=== PATIENT | female | born 1950 | race Caucasian/White ===

== ENCOUNTER 2016-03-25 10:00 | Outpatient (RCR) ==
[2013-08-13 08:14] VITALS: BMI 28.3
--- NOTE | 2016-03-05 10:01 | RS.OPPTEV2 ---
Date of Note: 03/05/16 Visit #: 1 Date of Evaluation: 03/05/16 Payer Source: MEDICARE Date of Onset/Injury/Change in Status: 02/25/16 Surgery Performed?: No Treatment Diagnosis: Ataxia History of Condition/Mechanism of Injury:: Patient states she was dx with cerebellar degeneration in 2001. It has progressively gotten worse and now she is having difficulty with BLE pain and balance and coordination. She denies falling routinely. She has some dizziness from nystagmus and has double vision at times when she look off to the side. / childxren in her family have this disorder. She attends water therapy 2X/wk. She is having decreased endurance and vocal and vision changes. She sees Dr. Dubon for neurology. She also reports she is getting choked at times and having some trouble swallowing but it is inconsistent. Prior Level of Function.....Patient was independent with: ADL's, Self Care, Work /Vocation, Caregiving, Ambulation/Mobility, Community Integration/Access Functional Limitations: Reaching, Pushing, Pulling, Lifting, Carrying, Bending, Squatting, Ambulation, Community Access/Integration Current Subjective/complaints:: My legs seems to hurt more at night from my hips down. It is an ache and I can not get comfortable. It is not every night. I use Aspircream and it helps. Treatment Side (optional): N/A Medical History Medical History Comments:: GERD, osteoporosis Surgical History: Hysterectomy Surgical History Comments:: Tubal ligation and cataract surgery and hernia repair. Smoking Status: Never smoker Patient's Goals: Gain strength and walk better. Pain Assessment - Pain Description Pain Location: BLEs Pain Description: Dull, Aching Current Pain Intensity: 0/10 Other Comments regarding Pain:: Pain is intermittent Functional Outcome Measure Tinetti: 15 (46% disability) Dynamic Gait: 12 (50% disability) - G Codes & Severity Modifier G Codes & Modifier: Current: Mobility, Walking & Moving Around - CK. Goal: CJ Source of G Code score: Tinetti & Dynamic Gait Index Gait - Gait Pattern General Gait Pattern Observation: Weaving Gait, Ataxic Gait General Range of Motion: WNLs in all extremities. Muscle Strength: BLE MMT WFLs but fatigue rapidly. Palpation Comments:: No tenderness to palpatiion of the LEs. Sensation - Sensation Sensation Description: Tingling (Bilateral feet) Balance - Sitting Balance Static Sitting Balance: Normal Dynamic Sitting Balance: Good - Standing Balance Static Standing Balance: Good Dynamic Standing Balance: Fair - Comments Balance Assessment Comments: Rollator Walker used for all balance testing. Coordination - Tests Bilateral Finger to Nose: Mild Deviation Heel to [place]: Mild Deviation Toe Tapping: Normal/Intact Interventions - Exercise/Activities/Manual Therapy Exercises/Activities: NA Manual Therapy: NA - Charges Total Direct Minutes: 45 Total Treatment Time: 45 Procedures billed for this date of service:: Moderate Complexity PT Eval Assessment Assessment: Patient has cerebellar degeneration with c/o decreased coordination , decreased standing balance, rapid fatigue and multiple gait deficits. She does have intermittent BLE pain which usually occurs at night. Patient's visual disruption and associated dizziness will cause increased duration to see progress. Patient Education: Education of diagnosis, Education of Plan of Care Rehab Potential: Good Short Term Goals Goal #1: Patient is independent in initial HEP Goal to be met by: 03/22/16 Goal #2: Patient has good safety awareness with min challenges to her balance Goal to be met by: 03/22/16 Goal #3: Tinetti Balance Assessment score 20/28 Goal to be met by: 03/22/16 Snf Goals Goal #1: Patient is able to verbalize increased confidence with daily tasks. Goal to be met by: 04/05/16 Goal #2: DGI score 16/24 to decrease fall risk. 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
--- NOTE | 2016-03-06 12:12 | RS.OPPTDN ---
Subjective Date of Note: 03/06/16 Visit #: 2 Date of Evaluation: 03/05/16 Payer Source: MEDICARE Treatment Diagnosis: Ataxia Current Subjective/complaints:: Patient reports doing well with balance activities today. Reports she has the most trouble with turns when walking. Pain Assessment - Pain Description Pain Location: BLEs Pain Description: Dull, Aching Current Pain Intensity: 0/10 Other Comments regarding Pain:: Tingling in feet. Interventions - Exercise/Activities/Manual Therapy Exercises/Activities: NEURO 50mins with therapeutic breaks. Begins on Balance [place] for random control, unilateral standing, and weight shifting activities. In stading at hand rail for balance activities of marching, heel- toe walking, backward walking, toe-walking, side stepping and marching. Mini- squats and toe-ups. Standing while performing ball on the wall and active reaching above shoulder height. Worked on step-ups and step-downs on short stepper board and lateral step-ups and down, all multiple reps. Total minutes of Exercise: NEURO 50mins direct Manual Therapy: NA HOME EXERCISE PROGRAM: Standing at handrail or kitchen counter for toe-ups, mini -squats, and side-stepping - Charges Total Direct Minutes: 50mins Total Treatment Time: 50mins Procedures billed for this date of service:: NEUROx3 Assessment: Patient able to participate in all balance activities. She is motivated to work on HEP and improve her balance. Patient Education: Home Exercise Program, Home Safety, Activity Modification Patient demonstrates compliance with HEP?: Yes Short Term Goals Goal #1: Patient is independent in initial HEP Goal to be met by: 03/22/16 Progress towards Goal:: Progressing Goal #2: Patient has good safety awareness with min challenges to her balance Goal to be met by: 03/22/16 Progress towards Goal:: Progressing Goal #3: Tinetti Balance Assessment score 20/28 Goal to be met by: 03/22/16 Long-Term Goals Goal #1: Patient is able to verbalize increased confidence with daily tasks. Goal to be met by: 04/05/16 Goal #2: DGI score 16/24 to decrease fall risk. Goal to be met by: 04/05/16 Goal #3: Patient is independent with DC HEP to maintain status Goal to be met by: 04/05/16 Plan PLAN OF CARE EXPIRES ON:: 04/05/16 ORDER # VISITS AND/OR THROUGH DATE: 04/05/2016 PLAN: Continue Plan of Care
--- NOTE | 2016-03-08 12:12 | RS.OPPTDN ---
Subjective Date of Note: 03/08/16 Visit #: 3 Date of Evaluation: 03/05/16 Payer Source: MEDICARE Treatment Diagnosis: Ataxia Current Subjective/complaints:: Patient reports some soreness in the bilateral hamstrings after last session of balance activity. Pain Assessment - Pain Description Pain Location: BLEs Pain Description: Dull, Aching Current Pain Intensity: 0/10 Interventions - Exercise/Activities/Manual Therapy Exercises/Activities: NEURO 50mins with therapeutic breaks. Begins on Balance [place] for random control, unilateral standing, and weight shifting activities. In stading at hand rail for balance activities of marching, toe- walking, side stepping and marching. Mini-squats and toe-ups. Began alternate hip abduction. Standing while performing ball on the wall and active reaching above shoulder height. Worked on step-ups and step-downs on short stepper board and lateral step-ups and down, all multiple reps. In standing, red theraband for postural strengthening and balance work, 3s/10reps. Total minutes of Exercise: 50mins Manual Therapy: NA HOME EXERCISE PROGRAM: Standing at handrail or kitchen counter for toe-ups, mini -squats, and side-stepping - Charges Total Direct Minutes: 50mins Total Treatment Time: 50mins Procedures billed for this date of service:: NEUROx3 Assessment: Patient motivated to progress balance activities. Patient Education: Education of diagnosis, Body/Joint mechanics, Home Exercise Program, Activity Modification Patient demonstrates compliance with HEP?: Yes Short Term Goals Goal #1: Patient is independent in initial HEP Goal to be met by: 03/22/16 Progress towards Goal:: Progressing Goal #2: Patient has good safety awareness with min challenges to her balance Goal to be met by: 03/22/16 Progress towards Goal:: Progressing Goal #3: Tinetti Balance Assessment score 20/28 Goal to be met by: 03/22/16 Online Advertising Director Goals Goal #1: Patient is able to verbalize increased confidence with daily tasks. Goal to be met by: 04/05/16 Goal #2: DGI score 16/24 to decrease fall risk. Goal to be met by: 04/05/16 Goal #3: Patient is independent with DC HEP to maintain status Goal to be met by: 04/05/16 Plan PLAN OF CARE EXPIRES ON:: 04/05/16 ORDER # VISITS AND/OR THROUGH DATE: 04/05/2016 PLAN: Continue Plan of Care
--- NOTE | 2016-03-13 13:32 | RS.OPPTDN ---
Subjective Date of Note: 03/13/16 Visit #: 4 Date of Evaluation: 03/05/16 Payer Source: MEDICARE Treatment Diagnosis: Ataxia Current Subjective/complaints:: Patient reports she had some muscle soreness after last session. States she is working on HEP. Pain Assessment - Pain Description Pain Location: BLEs Pain Description: Dull, Aching Current Pain Intensity: 0/10 Interventions - Exercise/Activities/Manual Therapy Exercises/Activities: NEURO 35mins with therapeutic breaks. Begins on Balance [place] for random control, unilateral standing, and weight shifting activities. In stading at hand rail for balance activities of marching, toe- walking, side stepping and marching. Worked on step-ups and step-downs on short stepper board and lateral step-ups and down, all multiple reps. EXERCISE 15mins Mini-squats and toe-ups. Alternate hip flexion with 2# each side, 2s/10reps. SLR 2s/10reps. Red theraband for hip abd in hook-lying and ankld df. Total minutes of Exercise: 35mins NEURO, 15mins EX Manual Therapy: NA HOME EXERCISE PROGRAM: Standing at handrail or kitchen counter for toe-ups, mini -squats, and side-stepping - Charges Total Direct Minutes: 50mins Total Treatment Time: 50mins Procedures billed for this date of service:: NEUROx2, EX Assessment: Patient progressing well with exercise. Patient Education: Home Exercise Program Patient demonstrates compliance with HEP?: Yes Short Term Goals Goal #1: Patient is independent in initial HEP Goal to be met by: 03/22/16 Progress towards Goal:: Progressing Goal #2: Patient has good safety awareness with min challenges to her balance Goal to be met by: 03/22/16 Progress towards Goal:: Progressing Goal #3: Tinetti Balance Assessment score 20/28 Goal to be met by: 03/22/16 Usp Goals Goal #1: Patient is able to verbalize increased confidence with daily tasks. Goal to be met by: 04/05/16 Goal #2: DGI score 16/24 to decrease fall risk. Goal to be met by: 04/05/16 Goal #3: Patient is independent with DC HEP to maintain status Goal to be met by: 04/05/16 Plan PLAN OF CARE EXPIRES ON:: 04/05/16 ORDER # VISITS AND/OR THROUGH DATE: 04/05/2016 PLAN: Continue Plan of Care
--- NOTE | 2016-03-15 13:19 | RS.OPPTDN ---
Subjective Date of Note: 03/15/16 Visit #: 5 Date of Evaluation: 03/05/16 Payer Source: MEDICARE Treatment Diagnosis: Ataxia Current Subjective/complaints:: Reports right knee seems stronger and less painful. States she is working on HEP. Pain Assessment - Pain Description Pain Location: BLEs Pain Description: Dull, Aching Current Pain Intensity: 0/10 Interventions - Exercise/Activities/Manual Therapy Exercises/Activities: NEURO 35mins with therapeutic breaks. Balance [place] for random control, unilateral standing, and weight shifting activities. In stading at hand rail for balance activities of marching, toe-walking, side stepping and backward walking. Worked on step-ups and step-downs on short stepper board and lateral step-ups and down, all multiple reps. Began walking on treadmill slow pace to work on equal even steps, 0.5mph 2s/1min. EXERCISE 15mins Mini-squats and toe-ups. Large ball on wall overhead for balance. Leg press 15#, 3s/15reps and toe-offs 15# 2s/10reps. Total minutes of Exercise: NEURO 35mins, EX 15mins Manual Therapy: NA HOME EXERCISE PROGRAM: Standing at handrail or kitchen counter for toe-ups, mini -squats, and side-stepping - Charges Total Direct Minutes: 50mins Total Treatment Time: 50mins Procedures billed for this date of service:: NEUROx2, EX Assessment: Patient progressing with balance and strengthening exercise. Patient Education: Body/Joint mechanics, Home Exercise Program, Activity Modification Patient demonstrates compliance with HEP?: Yes Short Term Goals Goal #1: Patient is independent in initial HEP Goal to be met by: 03/22/16 Progress towards Goal:: Progressing Goal #2: Patient has good safety awareness with min challenges to her balance Goal to be met by: 03/22/16 Progress towards Goal:: Progressing Goal #3: Tinetti Balance Assessment score 20/28 Goal to be met by: 03/22/16 Snf Goals Goal #1: Patient is able to verbalize increased confidence with daily tasks. Goal to be met by: 04/05/16 Goal #2: DGI score 16/24 to decrease fall risk. Goal to be met by: 04/05/16 Goal #3: Patient is independent with DC HEP to maintain status Goal to be met by: 04/05/16 Plan PLAN OF CARE EXPIRES ON:: 04/05/16 ORDER # VISITS AND/OR THROUGH DATE: 04/05/2016 PLAN: Continue Plan of Care
--- NOTE | 2016-03-18 16:19 | RS.OPPTDN ---
Subjective Date of Note: 03/18/16 Visit #: 6 Date of Evaluation: 03/05/16 Payer Source: MEDICARE Treatment Diagnosis: Ataxia Current Subjective/complaints:: Patient reports increased fatigue this afternoon. Pain Assessment - Pain Description Pain Location: BLEs Pain Description: Dull, Aching Current Pain Intensity: 0/10 Interventions - Exercise/Activities/Manual Therapy Exercises/Activities: NEURO 35mins with therapeutic breaks. Balance [place] for random control, unilateral standing, weight shifting activities, and Catch Game. In standing at hand rail for balance activities of marching, toe-walking, side stepping and backward walking. Worked on step-ups and step-downs on short stepper board and lateral step-ups and down, all multiple reps. EXERCISE 15mins Mini-squats and toe-ups. In sitting, 3# each LE for SAQ and hip flexion , 2s/15reps each. Leg press increased to 30#, 3s/15reps and toe-offs 30# 2s/ 10reps. Total minutes of Exercise: 35mins NEURO, 15mins EX Manual Therapy: NA HOME EXERCISE PROGRAM: Standing at handrail or kitchen counter for toe-ups, mini -squats, and side-stepping - Charges Total Direct Minutes: 50mins Total Treatment Time: 50mins Procedures billed for this date of service:: NEUROx2, EX Assessment: Patient continues to work on balance and strengthening to increase safety with daily activities. Patient Education: Body/Joint mechanics, Home Exercise Program Patient demonstrates compliance with HEP?: Yes Short Term Goals Goal #1: Patient is independent in initial HEP Goal to be met by: 03/22/16 (100%) Progress towards Goal:: Met Goal #2: Patient has good safety awareness with min challenges to her balance Goal to be met by: 03/22/16 Progress towards Goal:: Progressing Goal #3: Tinetti Balance Assessment score 20/28 Goal to be met by: 03/22/16 Mcc Goals Goal #1: Patient is able to verbalize increased confidence with daily tasks. Goal to be met by: 04/05/16 Progress towards goal: Progressing Goal #2: DGI score 16/24 to decrease fall risk. Goal to be met by: 04/05/16 Goal #3: Patient is independent with DC HEP to maintain status Goal to be met by: 02/10/17 Plan PLAN OF CARE EXPIRES ON:: 04/05/16 ORDER # VISITS AND/OR THROUGH DATE: 04/05/2016 PLAN: Continue Plan of Care
--- NOTE | 2016-03-20 16:26 | RS.OPPTDN ---
Subjective Date of Note: 03/20/16 Visit #: 7 Date of Evaluation: 03/05/16 Payer Source: MEDICARE Treatment Diagnosis: Ataxia Current Subjective/complaints:: Patient reports she is getting stronger. States she feels she is doing better going up steps. Pain Assessment - Pain Description Pain Location: BLEs Pain Description: Dull, Aching Current Pain Intensity: 0/10 Interventions - Exercise/Activities/Manual Therapy Exercises/Activities: NEURO 35mins with therapeutic breaks. Balance [place] for random control, unilateral standing, weight shifting activities, and Catch Game. In standing at hand rail for balance activities of marching, toe-walking, side stepping and backward walking. Worked on step-ups and step-downs on short stepper board and lateral step-ups and down, all multiple reps. EXERCISE 15mins Sitting, SAQ 3# and hip flexion #3, 2s/15reps each. In supine, trunk rotation with 6# ball. Red theraband for ankle df andham curls, 2s/10reps each. Leg press increased to 45#, 3s/15reps. Assisted patient onto stationary bike, slow to mod pace 3mins. Total minutes of Exercise: NEURO 35mins, EX 15mins Manual Therapy: NA HOME EXERCISE PROGRAM: Standing at handrail or kitchen counter for toe-ups, mini -squats, and side-stepping - Charges Total Direct Minutes: 50mins Total Treatment Time: 50mins Procedures billed for this date of service:: NEUROx2, EX Assessment: Patient progressing with balance and strengthening activities. Patient reporting improvement in strength and with functional mobility. Patient Education: Body/Joint mechanics, Home Exercise Program, Home Safety Patient demonstrates compliance with HEP?: Yes Short Term Goals Goal #1: Patient is independent in initial HEP Goal to be met by: 03/22/16 (100%) Progress towards Goal:: Met Goal #2: Patient has good safety awareness with min challenges to her balance Goal to be met by: 03/22/16 Progress towards Goal:: Progressing Goal #3: Tinetti Balance Assessment score 20/28 Goal to be met by: 03/22/16 Architectural Sales Consultant Goals Goal #1: Patient is able to verbalize increased confidence with daily tasks. Goal to be met by: 04/05/16 Progress towards goal: Progressing Goal #2: DGI score 16/24 to decrease fall risk. Goal to be met by: 04/05/16 Goal #3: Patient is independent with DC HEP to maintain status Goal to be met by: 04/05/16 Plan PLAN OF CARE EXPIRES ON:: 04/05/16 ORDER # VISITS AND/OR THROUGH DATE: 04/05/2016 PLAN: Continue Plan of Care
--- NOTE | 2016-03-25 11:29 | RS.OPPTDN ---
Subjective Date of Note: 03/25/16 Visit #: 8 Date of Evaluation: 03/05/16 Payer Source: MEDICARE Treatment Diagnosis: Ataxia Current Subjective/complaints:: Patient reports she has increased strength. States she has improved ability to go up steps and to lift LE's in and out of car. Pain Assessment - Pain Description Pain Location: BLEs Pain Description: Dull, Aching Current Pain Intensity: 0/10 Interventions - Exercise/Activities/Manual Therapy Exercises/Activities: NEURO 35mins with therapeutic breaks. Balance [place] for random control, unilateral standing, weight shifting activities. In standing at hand rail for balance activities of marching, toe-walking, cross walking, side stepping and backward walking. Worked on step-ups and step-downs on short stepper board and lateral step-ups and down, all multiple reps. Unilateral standing on green thera-foam, alternating sides multiple reps. At handrail, mini-squats and toe-ups. EXERCISE 15mins Sitting, SAQ 3# and hip flexion #3, 2s/15reps each. Red theraband for ankle df 2s/10reps each. Leg press to 45#, 2s/20reps. Assisted patient onto stationary bike, slow to mod pace 3mins. Total minutes of Exercise: NEURO 35mins, EX 15mins Manual Therapy: NA HOME EXERCISE PROGRAM: Standing at handrail or kitchen counter for toe-ups, mini -squats, and side-stepping - Charges Total Direct Minutes: 50mins Total Treatment Time: 50mins Procedures billed for this date of service:: NEUROx2, EX Assessment: Patient progressing with exercise and reporting improvement in ability with daily activities. Patient Education: Home Exercise Program, Home Safety, Activity Modification Patient demonstrates compliance with HEP?: Yes Short Term Goals Goal #1: Patient is independent in initial HEP Goal to be met by: 03/22/16 (100%) Progress towards Goal:: Met Goal #2: Patient has good safety awareness with min challenges to her balance Goal to be met by: 03/22/16 Progress towards Goal:: Met Goal #3: Tinetti Balance Assessment score 20/28 Goal to be met by: 03/22/16 Vascular Neurologist Goals Goal #1: Patient is able to verbalize increased confidence with daily tasks. Goal to be met by: 04/05/16 (25%) Progress towards goal: Progressing Goal #2: DGI score 16/24 to decrease fall risk. Goal to be met by: 04/05/16 Goal #3: Patient is independent with DC HEP to maintain status Goal to be met by: 04/05/16 Plan PLAN OF CARE EXPIRES ON:: 04/05/16 ORDER # VISITS AND/OR THROUGH DATE: 04/05/2016 PLAN: Continue Plan of Care
== END 2016-03-26 ==
PROVIDERS: ATTEND Family Medicine
DX: G11.8 Other hereditary ataxias (principal)

== ENCOUNTER 2016-04-10 14:00 | Outpatient (RCR) ==
[2013-08-13 08:14] VITALS: BMI 28.3
--- NOTE | 2016-03-27 16:40 | RS.OPPTDN ---
Subjective Date of Note: 03/27/16 Visit #: 9 Date of Evaluation: 03/05/16 Payer Source: MEDICARE Treatment Diagnosis: Ataxia Current Subjective/complaints:: Manjit reports she is stronger. States she continues to see improvement with her ability to go up/down steps, get in/out of car, and with mobility in her home. Pain Assessment - Pain Description Pain Location: BLEs Current Pain Intensity: 0/10 Interventions - Exercise/Activities/Manual Therapy Exercises/Activities: NEURO 35mins with therapeutic breaks. Balance [place] for random control, unilateral standing, weight shifting, and Catch Game 2s/2mins. In standing at hand rail for balance activities of marching, toe-walking, cross walking, side stepping and backward walking. Worked on step-ups and step-downs on short stepper board and lateral step-ups and down, all multiple reps. Unilateral standing on green thera-foam, alternating sides multiple reps. EXERCISE 15mins Sitting, SAQ 3# and hip flexion #3, 2s/15reps each. At handrail , mini-squats and toe-ups. 3# to each ankle for hip abduction and marching, 10reps each. Red theraband for ankle df 2s/10reps each. Leg press to 45#, 2s/ 20reps. Assisted patient onto stationary bike, slow to mod pace 3mins. Total minutes of Exercise: NEURO 35mins, EX 15mins Manual Therapy: NA HOME EXERCISE PROGRAM: Standing at handrail or kitchen counter for toe-ups, mini -squats, and side-stepping - Charges Total Direct Minutes: 50mins Total Treatment Time: 50mins Procedures billed for this date of service:: NEUROx2, EX Assessment: Patient progressing with strengthening activities and reporting improvement with her ability to perform basic daily mobility. Patient Education: Home Exercise Program, Home Safety Patient demonstrates compliance with HEP?: Yes Short Term Goals Goal #1: Patient is independent in initial HEP Goal to be met by: 03/22/16 (100%) Progress towards Goal:: Met Goal #2: Patient has good safety awareness with min challenges to her balance Goal to be met by: 03/22/16 Progress towards Goal:: Met Goal #3: Tinetti Balance Assessment score 20/28 Goal to be met by: 03/22/16 Engineering Secretary Goals Goal #1: Patient is able to verbalize increased confidence with daily tasks. Goal to be met by: 04/05/16 (25%) Progress towards goal: Progressing Goal #2: DGI score 16/24 to decrease fall risk. Goal to be met by: 04/05/16 Goal #3: Patient is independent with DC HEP to maintain status Goal to be met by: 04/05/16 Plan PLAN OF CARE EXPIRES ON:: 04/05/16 ORDER # VISITS AND/OR THROUGH DATE: 04/05/2016 PLAN: Continue Plan of Care (Continue to progress strenthening and balance activity to increase patient safety and functional activity level.)
--- NOTE | 2016-04-03 16:30 | RS.OPPTDN ---
Subjective Date of Note: 04/03/16 Visit #: 10 Date of Evaluation: 03/05/16 Payer Source: MEDICARE Treatment Diagnosis: Ataxia Current Subjective/complaints:: Patient reports left knee pain has been elevated since increasing LE weights last session. Pain Assessment - Pain Description Pain Location: BLEs Current Pain Intensity: mild to mod left knee Interventions - Exercise/Activities/Manual Therapy Exercises/Activities: NEURO 35mins with therapeutic breaks. Balance Kyle for random control, unilateral standing, weight shifting, and Catch Game 2s/2mins. In standing at hand rail for balance activities of marching, toe-walking, cross walking, side stepping. Worked on step-ups and step-downs on short stepper board and lateral step-ups and down, all multiple reps. Unilateral standing on green thera-foam, alternating sides multiple reps. EXERCISE 13mins At handrail , mini-squats and toe-ups. Alt. hip abduction and hip flexion. Red theraband for ankle df 2s/10reps each. Leg press to 45#, 3s/20reps and df 2s/10reps. Assisted patient onto stationary bike, slow to mod pace 3mins. Total minutes of Exercise: NEURO 35mins, EX 13mins Manual Therapy: NA HOME EXERCISE PROGRAM: Standing at handrail or kitchen counter for toe-ups, mini -squats, and side-stepping - Charges Total Direct Minutes: 48mins Total Treatment Time: 50mins Procedures billed for this date of service:: NEUROx2, EX Assessment: Patient has progressed and seen improvement in her daily functional activities since beginning therapy. She reports noticable improvement in strength. Patient Education: Body/Joint mechanics, Home Exercise Program, Activity Modification Patient demonstrates compliance with HEP?: Yes Short Term Goals Goal #1: Patient is independent in initial HEP Goal to be met by: 03/22/16 (100%) Progress towards Goal:: Met Goal #2: Patient has good safety awareness with min challenges to her balance Goal to be met by: 03/22/16 Progress towards Goal:: Met Goal #3: Tinetti Balance Assessment score Goal to be met by: 03/22/16 Progress towards Goal:: Progressing (Increased to ) [place] Hat Blocker Goals Goal #1: Patient is able to verbalize increased confidence with daily tasks. Goal to be met by: 04/05/16 (75%) Progress towards goal: Progressing Goal #2: DGI score 16/24 to decrease fall risk. Goal to be met by: 04/05/16 Progress towards goal: Not Met Goal #3: Patient is independent with DC HEP to maintain status Goal to be met by: 04/05/16 Plan PLAN OF CARE EXPIRES ON:: 04/05/16 ORDER # VISITS AND/OR THROUGH DATE: 04/05/2016 PLAN: Continue Plan of Care (Continue and progress strengthening and balance activity and build HEP.)
--- NOTE | 2016-04-05 16:21 | RS.OPPTDN ---
Subjective Date of Note: 04/05/16 Visit #: 11 Date of Evaluation: 03/05/16 Payer Source: MEDICARE Treatment Diagnosis: Ataxia Current Subjective/complaints:: Patient reports she is much stronger. She is able to be more mobile at home. She reports she has not had any falls. Pain Assessment - Pain Description Pain Location: BLEs Current Pain Intensity: mild to mod left knee Interventions - Exercise/Activities/Manual Therapy Exercises/Activities: NEURO 35mins with therapeutic breaks. Balance Orchard Worker for random control, unilateral standing, weight shifting, and Catch Game 2s/2mins. In standing at hand rail for balance activities of marching, toe-walking, cross walking, side stepping. Worked on step-ups and step-downs on short stepper board and lateral step-ups and down, all multiple reps. Unilateral standing on green thera-foam, alternating sides multiple reps. EXERCISE 22mins Mat exercise of alt hip flexion 3#, SAQ 3#, SLR, hip abd, red theraband for hip abd and add in hook-lying. Bridging. Isometric hip flexion. Red theraband for ankle df 2s/10reps each. At handrail, mini-squats and toe-ups. Alt. hip abduction and hip flexion. Leg press to 45#, 3s/20reps and df 2s/10reps. Assisted patient onto stationary bike, slow to mod pace 3mins. Total minutes of Exercise: NEURO 35mins, EX 22mins Manual Therapy: NA HOME EXERCISE PROGRAM: Standing at handrail or kitchen counter for toe-ups, mini -squats, and side-stepping. Mat ex of SLR, SAQ, Hip abd, hook-lying LE lifts, isometric hip add, bridging. - Charges Total Direct Minutes: 57mins Total Treatment Time: 57mins Procedures billed for this date of service:: NEURO2, EX2 Assessment: Patient has progressed with strengthening and HEP. She has reported improvement with mobility in her home and community. She has met 3 of 6 treatment goals. Patient Education: Education of diagnosis, Home Exercise Program, Home Safety, Activity Modification Comments: Added to HEP and patient given copies of new ex. Patient demonstrates compliance with HEP?: Yes Short Term Goals Goal #1: Patient is independent in initial HEP Goal to be met by: 03/22/16 (100%) Progress towards Goal:: Met Goal #2: Patient has good safety awareness with min challenges to her balance Goal to be met by: 03/22/16 Progress towards Goal:: Met Goal #3: Tinetti Balance Assessment score Goal to be met by: 03/22/16 Progress towards Goal:: Progressing (Increased to ) Raw Products Director Goals Goal #1: Patient is able to verbalize increased confidence with daily tasks. Goal to be met by: 04/05/16 (100%) Progress towards goal: Met Goal #2: DGI score 1624 to decrease fall risk. Goal to be met by: 04/12/16 Progress towards goal: Progressing Goal #3: Patient is independent with DC HEP to maintain status Goal to be met by: 04/12/16 (90%) Progress towards goal: Progressing Plan PLAN OF CARE EXPIRES ON:: 04/12/16 ORDER # VISITS AND/OR THROUGH DATE: 04/12/2016 PLAN: Continue Plan of Care (Continue next week working toward LTG's to increase patients safety and functional activity level.)
--- NOTE | 2016-04-05 16:33 | RS.PTSUM ---
Progress Note/Summary Date of Note: 04/05/16 Date of Evaluation: 03/05/16 Number of Visits: 10 Reporting Period for this Progress Note: 03/05/16 through 04/03/16 Current Complaints/Gains: Patient reports she is much stronger. Can get in and out of car without lifting her LE's. Reports improvement with stairs. Objective Measurements/Presentation: Patient demonstrates independence with basic HEP. She demonstrates consistent foot clearance during swing phase. G Codes: Mobility current CJ. Mobility Goal CJ Source of G Code Score: Tinetti Assessment . No change in Dynamic Gait Index - Short Term Goals Goal #1: Patient is independent in initial HEP Goal to be met by: 03/22/16 (100%) Progress towards Goal:: Met Goal #2: Patient has good safety awareness with min challenges to her balance Goal to be met by: 03/22/16 Progress towards Goal:: Met Goal #3: Tinetti Balance Assessment score Goal to be met by: 03/22/16 Progress towards Goal:: Progressing (Increased to ) - Intermediate Goals Goal #1: Patient is able to verbalize increased confidence with daily tasks. Goal to be met by: 04/12/16 (100%) Progress towards goal: Met Goal #2: DGI score 1624 to decrease fall risk. Goal to be met by: 04/12/16 Progress towards goal: Not Met Goal #3: Patient is independent with DC HEP to maintain status Goal to be met by: 04/12/16 (100%) Progress towards goal: Met - Assessment Assessment of Improvement/Progress: Continue 2 more visits to advance HEP and education of safety with mobility. Summary: Patient has made progress towards goals., Patient demonstrates potential to gain increased function with therapy, Maximum potential has yet to be attained. - Plan Plan: Continue Plan of Care PLAN OF CARE EXPIRES ON:: 04/12/16 ORDER # VISITS AND/OR THROUGH DATE: 04/12/16
--- NOTE | 2016-04-10 16:53 | RS.OPPTDN ---
Subjective Date of Note: 04/10/16 Visit #: 12 Date of Evaluation: 03/05/16 Payer Source: MEDICARE Treatment Diagnosis: Ataxia Current Subjective/complaints:: Patient reports she understands HEP and will continue after discharge. States he balance has not improved, but her strength is much better and has helped her with her ability with ADL's. She reports no falls. Pain Assessment - Pain Description Pain Location: BLEs Current Pain Intensity: mild to mod left knee Interventions - Exercise/Activities/Manual Therapy Exercises/Activities: NEURO 35mins with therapeutic breaks. Balance Bridge Gang Worker for random control, unilateral standing, weight shifting, and Catch Game 2s/2mins. In standing at hand rail for balance activities of marching, toe-walking, cross walking, side stepping. Worked on step-ups and step-downs on short stepper board and lateral step-ups and down, all multiple reps. Unilateral standing on green thera-foam, alternating sides multiple reps. EXERCISE 24mins Mat exercise of alt hip flexion, SLR, hip abd. Bridging. Isometric hip flexion. Yellow theraband for ankle df 2s/10reps each. At handrail, mini-squats and toe- ups. Alt. hip abduction and hip flexion. Leg press to 45#, 3s/20reps and df 2s/ 10reps. Reviewed HEP and given additional copies and therabands. Total minutes of Exercise: NEURO 35mins, EX 24mins Manual Therapy: NA HOME EXERCISE PROGRAM: Standing at handrail or kitchen counter for toe-ups, mini -squats, and side-stepping. Mat ex of SLR, SAQ, Hip abd, hook-lying LE lifts, isometric hip add, bridging. - Charges Total Direct Minutes: 59mins Total Treatment Time: 59mins Procedures billed for this date of service:: NEURO2, EX2 Assessment: Patient progressed well and benefitted from treatment. She met 4 or 6 treatment goals. Patient Education: Home Exercise Program, Home Safety, Activity Modification, Education of Plan of Care Patient demonstrates compliance with HEP?: Yes Short Term Goals Goal #1: Patient is independent in initial HEP Goal to be met by: 03/22/16 (100%) Progress towards Goal:: Met Goal #2: Patient has good safety awareness with min challenges to her balance Goal to be met by: 03/22/16 Progress towards Goal:: Met Goal #3: Tinetti Balance Assessment score 20/28 Goal to be met by: 03/22/16 Progress towards Goal:: Progressing (Increased to ) Grain Farmer Goals Goal #1: Patient is able to verbalize increased confidence with daily tasks. Goal to be met by: 04/05/16 (100%) Progress towards goal: Met Goal #2: DGI score 1624 to decrease fall risk. Goal to be met by: 04/12/16 Progress towards goal: Progressing Goal #3: Patient is independent with DC HEP to maintain status Goal to be met by: 04/12/16 (100%) Progress towards goal: Met Plan PLAN OF CARE EXPIRES ON:: 04/12/16 ORDER # VISITS AND/OR THROUGH DATE: 04/12/2016 PLAN: Plan for Discharge (Discharge with HEP.)
--- NOTE | 2016-04-30 12:55 | RS.OPPTDC ---
Date of Discharge: 04/10/16 Date of Evaluation: 03/05/16 Number of Visits: 12 Treatment Diagnosis: Ataxia Current Complaints/Gains: Patient reports she is much stronger. Can get in and out of car without lifting her LE's. Reports improvement with stairs. Pain Assessment - Pain Description Pain Location: BLEs Current Pain Intensity: mild to mod left knee Functional Outcome Measure - G Codes & Severity Modifier G Codes & Modifier: Mobility. Goal - CJ. D/C - CJ Source of G Code score: Nola Interventions - Exercise/Activities/Manual Therapy Exercises/Activities: NA Manual Therapy: NA - Charges Total Direct Minutes: NA Total Treatment Time: NA Procedures billed for this date of service:: NA Assessment Assessment: 05/30 STGs and LTGs met. She continues with dynamic balance deficits but has had no more falls and is independent with HEP to continue with her current PT program at home. Short Term Goals Goal #1: Patient is independent in initial HEP Goal to be met by: 03/22/16 (100%) Progress towards Goal:: Met Goal #2: Patient has good safety awareness with min challenges to her balance Goal to be met by: 03/22/16 Progress towards Goal:: Met Goal #3: Tinetti Balance Assessment score 20/28 Goal to be met by: 03/22/16 Progress towards Goal:: Progressing (Increased to 1828) Senior Living Goals Goal #1: Patient is able to verbalize increased confidence with daily tasks. Goal to be met by: 04/05/16 (100%) Progress towards goal: Met Goal #2: DGI score 16/24 to decrease fall risk. Goal to be met by: 04/12/16 Progress towards goal: Progressing Goal #3: Patient is independent with DC HEP to maintain status Goal to be met by: 04/12/16 (100%) Progress towards goal: Met Plan Reason for Discharge:: No Further Skilled Therapy Indicated
== END 2016-04-23 ==
PROVIDERS: ATTEND Family Medicine
DX: G11.8 Other hereditary ataxias (principal)

== ENCOUNTER 2017-06-11 14:49 | Outpatient (CLI) ==
[2013-08-13 08:14] VITALS: BMI 28.3
--- NOTE | 2017-06-11 16:07 | DI ---
EXAM: RIGHT FOOT, 3 VIEWS HISTORY: Foot pain FINDINGS: Bones appear demineralized. Mild diffuse interphalangeal joint osteoarthritis. Subtle en thesopathy of the posterior calcaneus. Questionable transverse lucency across the base of the fifth metatarsal is probably artifactual or prominent trabecular lucency. Correlate clinically to exclude unlikely a hairline fracture. No joint effusion. Soft tissues within normal limits. IMPRESSION: No definite acute abnormality, see above.
== END 2017-06-11 14:50 | disposition home or self-care (01) ==
LOC: RAD 14:49
PROVIDERS: ATTEND Family Medicine
DX: M79.671 Pain in right foot (principal)

== ENCOUNTER 2017-06-12 11:19 | Outpatient (CLI) | payer OTHER ==
[2013-08-13 08:14] VITALS: BMI 28.3
--- NOTE | 2017-06-12 12:07 | DI ---
Exam: Three x-rays of the right ankle. Comparison: None available. Reason for exam: Pain. FINDINGS: There is a displaced fracture of the right distal fibula. The talar dome appears intact. No abnormal widening is seen of the medial or lateral clear space. Impression: Minimally displaced fracture of the right distal fibula. Report faxed at 1201 hours on 06/12/2017.
== END 2017-06-12 11:20 | disposition home or self-care (01) ==
LOC: RAD 11:19
PROVIDERS: ATTEND Family Medicine
DX: M25.571 Pain in right ankle and joints of right foot (principal)

== ENCOUNTER 2018-03-04 14:08 | Outpatient (CLI) | payer OTHER ==
[2013-08-13 08:14] VITALS: BMI 28.3
--- NOTE | 2018-03-13 09:07 | MAMMO ---
EXAM: Bilateral digital screening mammogram (2-D and 3-D) History: Screening Comparison: Bilateral mammogram 08/14/2016 Findings: MLO and CC views of bilateral breasts demonstrate heterogeneously dense breast parenchyma which can obscure small lesions. CAD was reviewed by the radiologist. Tomosynthesis was performed. There are no dominant masses, no suspicious microcalcifications and no architectural distortions Impression: Stable negative mammogram. Recommend followup routine screening mammography in 1 year. BIRADS 1, negative
== END 2018-03-04 14:09 | disposition home or self-care (01) ==
LOC: RAD 14:08
PROVIDERS: ATTEND Family Medicine
DX: Z12.31 Encounter for screening mammogram for malignant neoplasm of breast (principal)

== ENCOUNTER 2018-03-20 09:03 | Outpatient (RCR) ==
[2013-08-13 08:14] VITALS: BMI 28.3
--- NOTE | 2018-03-20 13:30 | RS.PDEVAL ---
Subjective Number of treatment sessions: 1 Date of Evaluation: 03/20/18 Treatment Diagnosis: hereditary cerebellar degeneration Current Level of Function: This 68 year old female was referred for speech therapy due to reported decline in speech intelligibility. The patient has a hx with PT to improve balance, muscle strength, and coordination for walking. Currently, her disease has impacted her lingual strength and coordination impacting her speech intelligibility with familiar and unfamiliar listeners. Skilled ST is recommended to increase speech motor skills, awareness, provided education and training, and maintain or progress current speech intelligibility. Current Subjective/complaints:: The patient was diagnosed with cerebellar degeneration approximately 20 years ago. Recently, she has reported concerns with her vocal quality, speech intelligibility, and speaking endurance. She also has difficulty with handwriting, walking/standing balance, and eye sight with reading and focusing. She verbalized difficulty with speaking to an aunt whom is [place] as well as speaking in large groups or during family gatherings. She reports motivation to improve her speech intelligibility and perserve her voice quality as long as possible. Patient's Goals: To improve volume, speech intelligibility, and perserve current intelligibility. Oral-Motor Evaluation - Jaw control Comments:: No deficits with mandible. - Labial Function Lip spread /i/: + Lip symmetry at rest: + Lip round /u/: + Lip smacking: + Comments:: No deficits with labial function. - Lingual Function Protrusion: - Lateralization to buccal cavity: + Lateralization to corners: Left (imprecise movements.) Elevation of back: + Elevation of tip: - Retraction: + Comments:: Lingual movements with tremor, mild difficulty with lateralization, small deviation to right side with tongue protrusion. - Velar Function Prolonged /a/: symmetry during evaluation: + Comments:: 3-10 seconds with sustained phonation-hoarse and breathy quality with poor breath support. - Reflex Swallow Reflex: + AMRs - Velar Rhythm: Irregular Rate: Slow (8 productions in 4.69 seconds prior to voice break.) Accuracy: Imprecise - Lingua-Alveolar Rhythm: Irregular Rate: Slow (13 in 5.89 seconds) Accuracy: Imprecise - Bilabial Rhythm: Irregular Rate: Slow (12 in 6.28 seconds) Accuracy: Imprecise SMRs - SMRs Rhythm: Irregular Rate: Slow Accuracy: Imprecise (20 in 20.89 seconds with breathy quality. Voice quivering.) Observations - Observations Prolong /a/: 3 (3.32 seconds habitual voice, 10.93 high pitch voice) Characteristics Observed: Breathy, Tremor, Decreased loudness, Hoarse, Strained/ strangled Reading and/or Conversation - Characteristics Observed Phonation: Breathy, Pitch breaks, Hoarse, Voicing errors Articulation: Imprecise consonants, Distorted vowels Articulation Specific Errors: voiceless cons, /l/, vowels Prosody: Reduced stress, Slow rate, Prolonged phonemes (consonant cluster reductions, final speech sound deletions, syllable reductions.) Functional Reporting G Codes: Motor speech Current CJ goal CI Severity Impairment Rationale: Speech intelligibility rating 80% at word and sentence level within a structured task. Short Term Goals Problem: Vowel errors Goal #1: articulate long tense vowels in 1-2 syllable words with 90% Goal to be met by: 04/23/18 Problem: Speech sound errors Goal #2: Articulate multi-syllabic words in sentences with 90% Goal to be met by: 04/23/18 Problem: Speech articulation Goal #3: Produce /l/ and /l/ blends in words with 90% Goal to be met by: 04/23/18 Problem: breath support Goal #4: Use breather tool to improve prolonged phonation to 15 sec Goal to be met by: 04/23/18 Penitentiary Goals Problem: Speech intelligibility Goal #1: Produce 90% intelligible speech utterances read aloud Goal to be met by: 04/23/18 Problem: Speech intelligibility Goal #2: Produce 85-90% speech intelligibility in connected speech Goal to be met by: 04/23/18 Problem: breath support/loudness Goal #3: Complete breath program and use breather independently. Plan Duration of Treatment: 4 Weeks Frequency of Treatment: 1x/week Anticipated Discharge Destination: Home - Treatment Code (1) Dysarthria Code(s): R47.1 - DYSARTHRIA AND ANARTHRIA
== END 2018-03-26 23:59 ==
PROVIDERS: ATTEND Family Medicine
DX: G11.8 Other hereditary ataxias (principal); R47.1 Dysarthria and anarthria

== ENCOUNTER 2018-04-20 09:00 | Outpatient (RCR) ==
[2013-08-13 08:14] VITALS: BMI 28.3
--- NOTE | 2018-03-27 10:36 | RS.DYSARTX ---
Dysarthria Treatment Note Date of Note: 03/27/18 Visit #: 1 Time of Treatment: 09:00 Subjective: The patient had no new reports. She verbalized missing her water aerobics classes this week due to the severe weather conditions. When asked about her speaking, she verbalized her frequently assists her during communication exchanges. The patient also stated, "I don't usually talk alot and I have always been shy." Total treatment time: 60 - Short Term Goals Goal #1: articulate long tense vowels in 1-2 syllable words with 90% Goal #2: Articulate multi-syllabic words in sentences with 90% Goal #3: Produce /l/ and /l/ blends in words with 90% Goal #4: Use breather tool to improve prolonged phonation to 15 sec Activity/Accuracy: Pt completed 4 sets of 7-10 repetitions. Setting for Inhalation at 4, Exhalation at 3. - [facility] Goals Goal #1: Produce 90% intelligible speech utterances read aloud Goal #2: Produce 85-90% speech intelligibility in connected speech Goal #3: Complete breath program and use breather independently. Assessment: The COOK CANDY assessed the patient with the breather tool. Setting 1 for inhalation and exhalation was trialed with a full set of 10 repetitions within 60 seconds. The patient reported ease with resistance and the COOK CANDY observed no signs of distress. The COOK CANDY continued to monitor resistance training and setting level, moving up after a set was completed. At Inhalation level 4 and exhalation level 3, the COOK CANDY noted resistance with both settings. The patient also reported resistance and difficulty with the two settings. The COOK CANDY provided extension education on how to use the breather including frequency, duration, and training time. Printed papers with instructions were provided a reviewed. Cleaning management was also educated and demonstrated. At the end of the session, the COOK CANDY reviewed speaker and listener "strategies for improving intelligbility for dysarthric speakers and partners of dysarthric speakers." - Units Charged Speech Therapy: 4 - Plan Comments: Next session to follow-up with home program with breather tool. Increase sets to 6-7 within a setting. Begin training with speech intelligibilty drill work. Continue education with dysarthria and improving daily communication interactions.
--- NOTE | 2018-03-30 10:30 | RS.DYSARTX ---
Dysarthria Treatment Note Date of Note: 03/30/18 Visit #: 3 Time of Treatment: 09:00 Subjective: Pt reported completing her protcol with the breather tool 1x with five sets of 10 repetitions. She stated, she felt tired after the sets, but was not exhausted or lightheaded. She also reviewed her results from a previous MBSS that revealed risk for aspiration with thin liquids. The patient reported using thickener but was not consistent due to taste and texture. Total treatment time: 60 - Short Term Goals Goal #1: articulate long tense vowels in 1-2 syllable words with 90% Goal #2: Articulate multi-syllabic words in sentences with 90% Activity/Accuracy: Pt read aloud 5 three-four syllable words in isolation and then formulated two-three consecutive sentences. The patient articulated words with 80%-90% accuracy and sentences with 70-80% accuracy. Goal #3: Produce /l/ and /l/ blends in words with 90% Goal #4: Use breather tool to improve prolonged phonation to 15 sec Activity/Accuracy: Breather tool practiced over four sets of 10 repetitions. CUSTOM APPLICATOR decreased expiration level from 3 to 2. - Halfway Goals Goal #1: Produce 90% intelligible speech utterances read aloud Goal #2: Produce 85-90% speech intelligibility in connected speech Goal #3: Complete breath program and use breather independently. Assessment: The CUSTOM APPLICATOR assessed the patient with breather tool, intelligibility, and vocal quality techniques. Pt was noted with puffing cheeks when completing breather tool on exhale, so CUSTOM APPLICATOR reduced resistance level from 3 to 2. This improved exhalation. For intelligibility, three goals were identified for home practice; exagerration of 2-3 syllables to reduce voice break on second syllable , words beginning with /f/, and /l/ to velar or bilabial transitions. The CUSTOM APPLICATOR also addressed vocal hygiene and will begin introduction of regimens for pt to independently practice. Vocal quality and voice techniques were assessed. Flow phonation therapy techniques were identified to use for reduction in muscle tension and vocal hoarseness, harshness. Pt completed 3/3 steps with mild- moderate difficulty given a model from the CUSTOM APPLICATOR. - Units Charged Speech Therapy: 4 - Plan Comments: Next session, begin vocal hygiene education. Continue assessment with breather. Provide homework sheets for articulation drill work. Continue training with flow phonation technqiues. Continue laryngeal massage at end of session for muscle tension.
--- NOTE | 2018-04-06 10:26 | RS.DYSARTX ---
Dysarthria Treatment Note Date of Note: 04/06/18 Visit #: 1 Subjective: Pt reported she has been consistently completing her breather protocol. She does not have any reported side effects from use of the tool and can demonstrate without difficulty. She also reported having inconsistency with speech articulation. Total treatment time: 60 - Short Term Goals Goal #1: articulate long tense vowels in 1-2 syllable words with 90% Goal #2: Articulate multi-syllabic words in sentences with 90% Activity/Accuracy: Pt practiced with complex bisyllabic words and bisyllabic words with consonant blends. She required verbal and visual cues to prodcue with 80% accuracy. Goal #3: Produce /l/ and /l/ blends in words with 90% Activity/Accuracy: Pt practiced with complex bisyllabic words and bisyllabic words with consonant blends. She required verbal and visual cues to prodcue with 80% accuracy. Goal #4: Use breather tool to improve prolonged phonation to 15 sec Activity/Accuracy: Pt increased to five sets of ten repetitions with #4 and #2. - Civil Engineering Teacher Goals Goal #1: Produce 90% intelligible speech utterances read aloud Goal #2: Produce 85-90% speech intelligibility in connected speech Goal #3: Complete breath program and use breather independently. Assessment: Pt was assessed with breathing tool. She completed five sets with minimal difficulty. SLIVER FORMER to increase resistance on inhalation at next visit. Flow phonation techniques were modeled. Pt had mild-moderate difficulty with decreasing laryngeal tension and reducing hoarse vocal quality with tasks. Speech articulation was assessed with given words and v/v cues. - Units Charged Speech Therapy: 4 - Plan Comments: Re-assess phase one of flow phonation. Increase resistance with breather tool. Continue assessment with articulation.
--- NOTE | 2018-04-20 10:18 | RS.DYSARTX ---
Dysarthria Treatment Note Date of Note: 04/20/18 Visit #: 5 Time of Treatment: 09:15 Subjective: Pt verbalized one week of sickness with cold and sneezing. She stated, " I didn't have a cough or congestion and did not lose my voice." She went on to state that she took several days break from her 'breather' program and articulation drill work. She also reported improvements with voice production. She went on to state that while speaking on the phone, she started strong, however did start to lose her voice endurance. The CONTINUITY READER also noted a stronger voice quality and volume initially in the session. Total treatment time: 45 - Short Term Goals Goal #1: articulate long tense vowels in 1-2 syllable words with 90% Goal #2: Articulate multi-syllabic words in sentences with 90% Activity/Accuracy: Phrases with 75% accuracy given a model. Goal #3: Produce /l/ and /l/ blends in words with 90% Activity/Accuracy: Two-syllable words and two word phrases. /l/ in medial position with moderate difficulty. BL blends with mild difficulty. Goal #4: Use breather tool to improve prolonged phonation to 15 sec Activity/Accuracy: Breather tool completed Inspiration level 4, ten consecutive sets. Began level 5. - Usp Goals Goal #1: Produce 90% intelligible speech utterances read aloud Goal #2: Produce 85-90% speech intelligibility in connected speech Goal #3: Complete breath program and use breather independently. Assessment: Pt was assessed with breather tool. She completed ten sets of ten consecutive repetitions with 1x reported lightheadedness. She was assessed with inspiration level five and appropriate resistance was observed. The CONTINUITY READER moved her to level 5 and maintained expiration level 2. Articulation drill work was completed and she was moved into phrases. Flow phonation technique was completed with mild-moderate difficulty. The CONTINUITY READER modeled the technique and used the /h/ sound to increase open-throat airflow. She completed the counting 2-10 after multiple trials with the CONTINUITY READER. - Units Charged Speech Therapy: 3 - Plan Comments: Next session Phase 2 with phonation flow therapy. Increase breather expiration resistance to level 3. Continue to provide articulation drillwork homework.
== END 2018-04-23 23:59 ==
PROVIDERS: ATTEND Family Medicine
DX: G11.8 Other hereditary ataxias (principal); R47.1 Dysarthria and anarthria

== ENCOUNTER 2018-05-18 10:30 | Outpatient (RCR) ==
[2013-08-13 08:14] VITALS: BMI 28.3
--- NOTE | 2018-04-27 10:18 | RS.DYSARTX ---
Dysarthria Treatment Note Date of Note: 04/27/18 Visit #: 6 Time of Treatment: 09:15 Subjective: Pt reported the weather has been difficult with her walking. She verbalized last week was busy and she had limited time to practice her articulation drill work. She completed her Breather program sets with no reports of concern or SOB. She also stated she had noticed an increased awareness to her breath support with voicing. She reported her had not noticed a change with her loudness or vocal quality. Total treatment time: 45 - Short Term Goals Goal #1: articulate long tense vowels in 1-2 syllable words with 90% Activity/Accuracy: Practiced counting with breath support and volume control. Produced two words with elongation of vowels with 90% accuracy. Three words with 60-70% accuracy. Goal #2: Articulate multi-syllabic words in sentences with 90% Goal #3: Produce /l/ and /l/ blends in words with 90% Activity/Accuracy: 60-70% in conversational speech. Provided worksheets for home practice. Discussed changing speech prosody for articulation intelligibility. Goal #4: Use breather tool to improve prolonged phonation to 15 sec Activity/Accuracy: Produce 5 sets. increased expiration level to 3. - Metal Ceiling Hanger Goals Goal #1: Produce 90% intelligible speech utterances read aloud Goal #2: Produce 85-90% speech intelligibility in connected speech Goal #3: Complete breath program and use breather independently. Assessment: The patient was assessed with breather tool. The BUTTON SAWYER moved her resistance level to 3 on expiration while she maintained level 5 on inspiration. Flow phonation technique phase one was completed. The BUTTON SAWYER modeled phase two with breath and volume control. The patient required multiple trials with isolating breath support and volume control to coordinate both subsystems. - Units Charged Speech Therapy: 3 - Plan Comments: Next session continue to monitor breather tool. Increase resistance to level 4 on exhale, if ready. Begin phonation flow phase 3-4 with words and volume control. Continue to monitor articulation drill work and provide worksheets for home practice.
--- NOTE | 2018-05-18 11:28 | RS.DYSARTX ---
Dysarthria Treatment Note Date of Note: 05/18/18 Visit #: 7 Time of Treatment: 10:30 Subjective: The patient reported no concerns with general health. She stated this date, she felt her voice was strangled. She went on to verbalize that her voice quality and control is inconsistent and feels that it is related to her degenerative disease. She also reported that her stated she is more intelligible when she is reading aloud in her Friday school class. The TUBULAR RIVETER discussed vocal rest and vocal quality, endurance. She reported consistently using the "breather" and completing the program. Total treatment time: 45 - Short Term Goals Goal #1: articulate long tense vowels in 1-2 syllable words with 90% Activity/Accuracy: This was completed with structured reading. Vowels were articulated and prolonged with breath support, "flow phonation" technique during single words and 2-word phrases. 55% accuracy with verbal cues. Goal #2: Articulate multi-syllabic words in sentences with 90% Goal #3: Produce /l/ and /l/ blends in words with 90% Activity/Accuracy: This was targeted with single words and 2-word phrases. The TUBULAR RIVETER provided education with placement and manner for /l/ blends. The pt completed the task with 55% accuracy, targeting breath support in tandum. Goal #4: Use breather tool to improve prolonged phonation to 15 sec Activity/Accuracy: The TUBULAR RIVETER increased expiration resistance to 4 this date. The patient completed 5 sets with resistance. - Usp Goals Goal #1: Produce 90% intelligible speech utterances read aloud Goal #2: Produce 85-90% speech intelligibility in connected speech Goal #3: Complete breath program and use breather independently. Assessment: The patient was assessed with her breather program. The TUBULAR RIVETER increased the resistance level to 4 on the exhale. The patient required intermittent cueing for best exhale productions. For voice quality and control, the TUBULAR RIVETER targeted articulation and utilized flow phonation techniques. The pt moved to single words and 2-word phrases targeting both techniques in tandum. She required frequent verbal cues to target both techniques simultaneously. - Units Charged Speech Therapy: 3 - Plan Comments: Next session move into reading aloud and 1:1 question/response with flow phonation method. Also assess if ready for discharge from speech. Get MD order for swallowing concerns and evaluate swallow and begin NMES program if MD approved.
== END 2018-05-24 23:59 ==
PROVIDERS: ATTEND Family Medicine
DX: G11.8 Other hereditary ataxias (principal)

== ENCOUNTER 2018-06-19 09:00 | Outpatient (RCR) ==
[2013-08-13 08:14] VITALS: BMI 28.3
--- NOTE | 2018-05-25 10:17 | RS.DYSARTX ---
Dysarthria Treatment Note Date of Note: 05/25/18 Visit #: 8 Time of Treatment: 09:15 Subjective: The patient had no new reports. She verbalized that her voice quality continues to be inconsistent. She also reported that environmental noise and other communicators can impact her vocal endurance. The patient verbalized using breathing as the primary technique to increase vocal quality and loudness in structured settings. Total treatment time: 45 - Short Term Goals Goal #1: articulate long tense vowels in 1-2 syllable words with 90% Activity/Accuracy: This was observed in a reading task. She had minimal difficulty achieving 90% accuracy with strategies. Goal #2: Articulate multi-syllabic words in sentences with 90% Activity/Accuracy: 75-85% accuracy with reading aloud with 3 syllable words in a structured task. Goal #3: Produce /l/ and /l/ blends in words with 90% Goal #4: Use breather tool to improve prolonged phonation to 15 sec Activity/Accuracy: Pt completed breather program using highest resistance. - School Bus Aide Goals Goal #1: Produce 90% intelligible speech utterances read aloud Goal #2: Produce 85-90% speech intelligibility in connected speech Goal #3: Complete breath program and use breather independently. Assessment: The patient was assessed with breather tool. She maintained breath support to complete program on highest resistance levels. Flow phonation technique was used in structured reading tasks. She required verbal cues for prosody and rate of speech to increase naturalness. - Units Charged Speech Therapy: 3 - Plan Comments: Next session re-assessment with discharge.
--- NOTE | 2018-06-03 12:02 | RS.DYSARDC ---
Subjective Date of Discharge: 06/03/18 Date of Evaluation: 03/20/18 Duration of Therapy: 9 weeks Number of sessions: 9 Functional Reporting G Codes: n/a Severity Impairment Rationale: n/a Short Term Goals Problem: Dysarthria Goal #1: articulate long tense vowels in 1-2 syllable words with 90% Goal to be met by: 06/03/18 Progress towards Goal: Partially Met Comments:: At the word level 85-90% intelligible Problem: Dysarthria Goal #2: Articulate multi-syllabic words in sentences with 90% Goal to be met by: 06/03/18 Progress towards Goal: Partially Met Comments:: 94% reading aloud, can be [id number] in speaking situations. Problem: Dysarthria Goal #3: Produce /l/ and /l/ blends in words with 90% Goal to be met by: 06/03/18 Progress towards Goal: Partially Met Comments:: 80% Problem: Breath support Goal #4: Use breather tool to improve prolonged phonation to 15 sec Goal to be met by: 06/03/18 Progress towards Goal: Met Internet Marketing Specialist Goals Problem: dysarthria Goal #1: Produce 90% intelligible speech utterances read aloud Goal to be met by: 06/03/18 Progress towards Goal: Met Problem: dysarthria Goal #2: Produce 85-90% speech intelligibility in connected speech Goal to be met by: 06/03/18 Progress towards Goal: Progressing Comments:: Pt increases intelligibilty with use of techniques Problem: breath support Goal #3: Complete breath program and use breather independently. Goal to be met by: 06/03/18 Progress towards Goal: Met Reason for Discharge Comments: Pt was educated and trained with voicing, breathing, and articulation technqiues to improve general speech intelligibilty and vocal quality. Reason for Discharge/Current Status:: Pt currently reports variable changes with vocal quality, loudness, and speech articulation. To familiar listeners, mild changes have been noted with speech intelligibilty using strategies. The patient continues to demonstrate vocal fatigue and decreased vocal enduarnce impacting vocal quality. At time of discharge, the SHAKE MAKER re-administered the Assessment of intelligibility of dysarthric speech. Word level was 84%. Sentence level read aloud was 94% intelligibilty, Words per minute 42, number of intelligible words per 220 was 206 and unintelligible words were 14. During the assessment the patient was noted to take frequent breaks and pausing between each sentence, increasing speech sample duration. The patient did make improvements with speech intelligibilty at the word and sentence level. Word level improved 4% and sentence level 14%.
--- NOTE | 2018-06-10 12:04 | RS.BEDDYS ---
Subjective Number of treatment sessions: 1 Date of Evaluation: 06/10/18 Date of Onset/Injury/Change in Status: 12/25/17 Diagnosis: Hereditary cerebellar degeneration Current Level of Function: This 68 year old female reported swallowing trouble in 2017. She completed a modified barium swallow study that resulted in downgrading her liquid consistency and revealed risk for aspiration. She has no history of pneumonia, but her chronic cerebellar degeneration increases her risk for loss of functional swallow. At this time, she has s/s of dysphagia including, coughing, residuals, and decreased laryngeal elevation. Current Diet: Regular diet texture with nectar thick liquid consistency. Current Subjective/complaints:: The patient verbalized concerns with using thickener in her drinks. She reported she does not consistently use thickening agents to drink nectar thick liquids with diet texture. The patient verbalized s /s of occasional coughing with thin liquids, food feeling stuck, multiple swallows, and small bite sizes with diet texture. Patient's Goals: To consume safest and least restrictive diet texture. To maintain current swallow function. General Information - General Denture Type: Full- Upper Ability to Follow Directions: Excellent Oral Expression Ability: Mild Impairment Oral-Facial Assessment - Face Facial Symmetry: Symmetrical Facial Movement: Controlled - Dental/Labial Mouth Occlusion: Normal Teeth Characteristics: Missing (All molars on bottom) Lip Protrusion: Normal Lip Retraction: Normal Puff Cheeks: Normal - Lingual Protrusion: Normal Retraction: Normal Tip Lateralization: Discoordination Repeated Tip Lateralization: Discoordination Tip Elevation: Discoordination Repeated Tip Elevation: Discoordination Food Presentation - Solids Food Presented: Regular Behaviors/Comments: Pt had decreased rotary chew with minimal delay in swallow initiation. 2x swallow required with verbal reports of residuals in laryngeal space. Food Presented: Mechanical Soft Behaviors/Comments: No overt s/s of aspiration noted. - Liquids Liquid Presented: Thin (via open cup and straw) Behaviors/Comments: No overt s/s of aspiration. Audible swallow with possible premature spillage. Decreased laryngeal elevation. - Recommendations: Dysphagia Evaluation Dietary Recommendations: Normal Comments:: Pt does present with mild s/s of oropharyngeal phase dysphagia. She has risk for aspiration with thin liquids. Dysphagia Swallow Precautions/Strategies: Sitting Upright (90 deg), Double Swallow - Summary Dysphagia Evaluation Summary: The patient presents with oropharyngeal dysphagia. Signs and symptoms of hyoid-thyroid approximation, decreased laryngeal elevation, possible vallecular and/or pyriform sinus residuals, and risk for aspiration/penetration were determined at the bedside. The RETAIL ACCOUNT MANAGER suspects muscle dysfunction with lingual movements, linguals base retraction, hyolaryngeal excursion, and airway protection. The following dysfunction may be resulted from weakness or neurological deficits with the intrinsic/extrinsic tongue muscles, and hyolaryngeal excursion muscles. Further Therapy Indicated?: Yes Rehab Potential: Good Functional Reporting G Codes: n/a Severity Impairment Rationale: n/a Short Term Goals Problem: mastication Goal #1: Pt to improve rotary chew with presented 8/10 trials Goal to be met by: 07/08/18 Problem: laryngeal elevation Goal #2: pt to complete 5 trials of 10 reps of LE exercises. Goal to be met by: 07/08/18 Problem: Vallecular/pyriform residuals Goal #3: Improve pharyngeal squeeze with presnted bolus on 8/10 trials. Goal to be met by: 07/08/18 Problem: Lingual coordination/retraction Goal #4: Pt to complete 5 sets of 10 reps of lingual exercises Goal to be met by: 07/08/18 Superintendent Concrete Mixing Plant Goals Problem: Aspiration/penetration Goal #1: Consume thin liquids w/o overt s/s of asp during 20 min meal Goal to be met by: 07/24/18 Problem: swallowing difficulty Goal #2: Complete vital stimulation therapy program to improve funct. swallow. Goal to be met by: 07/24/18 Plan Duration of Treatment: 6 weeks Frequency of Treatment: 2x/week Anticipated Discharge Destination: Home Comments: Complete Neuromuscular electrical stimulation 2x/week for 4 weeks to determine progress with NMES. Complete typical dysphgia training and education. - Treatment Code (1) Oropharyngeal dysphagia Code(s): R13.12 - DYSPHAGIA, OROPHARYNGEAL PHASE
--- NOTE | 2018-06-17 10:14 | RS.DYSPHTX ---
Dysphagia Treatment Note Date of Note: 06/17/18 Visit #: 2 Time of Treatment: 09:00 Subjective: The patient did not have any new concerns with her swallow function. She reported no side effects from the first use with NMES. Total treatment time: 60 - Short Term Goals Goal #1: Pt to improve rotary chew with presented 8/10 trials Goal #2: pt to complete 5 trials of 10 reps of LE exercises. Activity/Accuracy: Pt completed 3 trials of 10 reps. Pt required verbal cues to increase pitch with LE exercises. Goal #3: Improve pharyngeal squeeze with presnted bolus on 8/10 trials. Goal #4: Pt to complete 5 sets of 10 reps of lingual exercises Activity/Accuracy: Pt completed 3 sets of BOT exercises with mild-moderate difficulty. - Fdc Goals Goal #1: Consume thin liquids w/o overt s/s of asp during 20 min meal Goal #2: Complete vital stimulation therapy program to improve funct. swallow. Assessment: Pt was assessed with swallow function with thin liquids, BOT and LE exercises. NMES was placed on 3a for 32 minutes increasing intensity to 12.5 by the end of the session. The pt completed multiple trials of thin liquids w/o overt s/s of aspiration. BOT and LE exercises were completed given a model and verbal cues to increase accuracy. - Units Charged Swallowing Therapy: 4
--- NOTE | 2018-06-19 10:14 | RS.DYSPHTX ---
Dysphagia Treatment Note Date of Note: 06/19/18 Visit #: 3 Time of Treatment: 09:00 Subjective: Pt reported no new concerns with swallow function. She verbalized that she coughs typically 1x a week on thin liquids. No concerns from placement of NMES at last session. Total treatment time: 60 - Short Term Goals Goal #1: Pt to improve rotary chew with presented 8/10 trials Activity/Accuracy: Pt completed 20 trials with regular diet texture. No difficulty with rotary chew. Goal #2: pt to complete 5 trials of 10 reps of LE exercises. Activity/Accuracy: Pt completed four trials of 5 repetitions of LE exercises with 60-70% accuracy. Goal #3: Improve pharyngeal squeeze with presnted bolus on 8/10 trials. Activity/Accuracy: Pt was given v/v cues to use effortful swallow with presented liquids and diet trials. She had audible air 50% of trials. Goal #4: Pt to complete 5 sets of 10 reps of lingual exercises Activity/Accuracy: Pt completed three trials of 5 reps of lingual exercises with 70-80% accuracy. - Refinery Process Engineer Goals Goal #1: Consume thin liquids w/o overt s/s of asp during 20 min meal Goal #2: Complete vital stimulation therapy program to improve funct. swallow. Assessment: Pt was assessed with swallow function using NMES. Placement 3a was utilized for 30 minutes on 13-14.5 intensity. She had minimal reports of stinging with higher intensity placement, which may have been d/t electrode loosening after second use. Pt had more than 20 trials of thin liquids and no overt s/s of aspiration was observed. Pt required increased cues to use effortful swallow with diet trials to reduce audible swallow. - Units Charged Swallowing Therapy: 4
== END 2018-06-23 23:59 ==
PROVIDERS: ATTEND Family Medicine
DX: G11.8 Other hereditary ataxias (principal); R47.1 Dysarthria and anarthria; R47.89 Other speech disturbances; R47.81 Slurred speech; R13.12 Dysphagia, oropharyngeal phase

== ENCOUNTER 2018-07-10 09:15 | Outpatient (RCR) ==
[2013-08-13 08:14] VITALS: BMI 28.3
--- NOTE | 2018-06-26 10:25 | RS.DYSPHTX ---
Dysphagia Treatment Note Date of Note: 06/26/18 Visit #: 4 Time of Treatment: 09:00 Subjective: Pt reported no major changes with her swallow function. She is currently drinking thin liquids only. She has no congestion or difficulty with thin liquids at this time, but a minimal risk for penetration. The patient also stated she has noticed increased "shock" in her tongue. This was reported prior to NMES, however, she has noted this sensation more frequently over the last few days. Total treatment time: 60 - Short Term Goals Goal #1: Pt to improve rotary chew with presented 8/10 trials Activity/Accuracy: No difficulty noted. Adequate bolus manipuluation with solid trials. no overt s/s of aspiration. Goal #2: pt to complete 5 trials of 10 reps of LE exercises. Activity/Accuracy: Pt completed four trials of five reps. She completed exercises with 70-80% accuracy. Pt required v/v cues. Goal #3: Improve pharyngeal squeeze with presnted bolus on 8/10 trials. Goal #4: Pt to complete 5 sets of 10 reps of lingual exercises Activity/Accuracy: Pt completed seven trials of three reps and two trials of ten reps. She did have fatigue in final trials. She completed exercises with 70- 80% accuracy. Pt required v/v cues. - Materials Mgmt Tech Goals Goal #1: Consume thin liquids w/o overt s/s of asp during 20 min meal Goal #2: Complete vital stimulation therapy program to improve funct. swallow. Assessment: Pt was assessed with thin liquids and oral motor exercises. She had 1x delayed cough with consecutive straw drinks. For exercises, she required v/v cues to recall and demonstrate all exercises. For LE exercises, she requires increased cueing for best accuracy. - Units Charged Swallowing Therapy: 4 - Plan Comments: Continue two more sessions and determine if NMES has progressed swallow function.
--- NOTE | 2018-07-01 10:18 | RS.DYSPHTX ---
Dysphagia Treatment Note Date of Note: 07/01/18 Visit #: 4 Time of Treatment: 09:15 Subjective: Pt verbalized she did not feel well today in general. She did not have any specific symptoms, but she was not wanting to have a shorter ST session. The pt reported she noted minimal changes with swallow function recently. However, she also reported two episodes of delayed cough with thin liquids. Total treatment time: 45 - Short Term Goals Goal #1: Pt to improve rotary chew with presented 8/10 trials Goal #2: pt to complete 5 trials of 10 reps of LE exercises. Activity/Accuracy: Pt completed 5 trials with mild-moderate difficulty with raising pitch this date. Goal #3: Improve pharyngeal squeeze with presnted bolus on 8/10 trials. Activity/Accuracy: Pt completed effortful swallows to increase awareness to BOT pressure. She required verbal cues for best accuracy. Goal #4: Pt to complete 5 sets of 10 reps of lingual exercises Activity/Accuracy: Pt completed three sets of BOT, strength, and coordination exercises with minimal difficulty, given verbal cues. - [facility] Goals Goal #1: Consume thin liquids w/o overt s/s of asp during 20 min meal Goal #2: Complete vital stimulation therapy program to improve funct. swallow. Assessment: Pt was assessed with NMES at 12.0 on placement 3a. She had minimal stinging sensation, which was relieved with tightening co-ban wrap. The patient required verbal cues to complete all lingual and LE exercises. However, minimal difficulty was noted with lingual exercises and mild-moderate difficulty with LE exercises. Pt took sips of thin liquids frequently with NMES without overt s/ s of aspiration. - Units Charged Swallowing Therapy: 3
--- NOTE | 2018-07-03 10:17 | RS.DYSPHTX ---
Dysphagia Treatment Note Date of Note: 07/03/18 Visit #: 5 Time of Treatment: 09:15 Subjective: Pt reported feeling better "in general" this date than her last ST session. She brought a snack to the session. She reported slight improvements with her general swallowing function. No reports of s/s of aspiration since last tx was reported. Total treatment time: 45 - Short Term Goals Goal #1: Pt to improve rotary chew with presented 8/10 trials Activity/Accuracy: Goal met Goal #2: pt to complete 5 trials of 10 reps of LE exercises. Activity/Accuracy: Pt completed four trials of 10 sets with mild difficulty, requiring v/v cues. Goal #3: Improve pharyngeal squeeze with presnted bolus on 8/10 trials. Activity/Accuracy: Pt had 1x episode to use effortful swallow with diet trials to increase pharyngeal squeeze and reduce residuals. Goal #4: Pt to complete 5 sets of 10 reps of lingual exercises Activity/Accuracy: Pt completed five trials of 10 reps of BOT exercises with minimal difficulty and minimal v/v cues. - [employer] Goals Goal #1: Consume thin liquids w/o overt s/s of asp during 20 min meal Goal #2: Complete vital stimulation therapy program to improve funct. swallow. Assessment: Pt was assessed with swallow function using NMES on 12.0 placement 3a. She had no reported stinging sensation and verbalized an improvement in motor movement with swallowing tasks. The patient continues to require increased v/v cues with LE exercises and minimal to no verbal cues for BOT exercises. - Units Charged Swallowing Therapy: 3
--- NOTE | 2018-07-08 10:35 | RS.DYSPHTX ---
Dysphagia Treatment Note Date of Note: 07/08/18 Visit #: 6 Time of Treatment: 09:15 Subjective: Pt reported having a great day with voice production. She also stated some improvements with general swallowing function. Discussion of discharge was completed. Total treatment time: 60 - Short Term Goals Goal #1: Pt to improve rotary chew with presented 8/10 trials Goal #2: pt to complete 5 trials of 10 reps of LE exercises. Activity/Accuracy: Pt completed all trials with mild difficulty maintaining elevation. Goal #3: Improve pharyngeal squeeze with presnted bolus on 8/10 trials. Goal #4: Pt to complete 5 sets of 10 reps of lingual exercises Activity/Accuracy: Pt completed all trials with minimal difficulty. - [facility] Goals Goal #1: Consume thin liquids w/o overt s/s of asp during 20 min meal Goal #2: Complete vital stimulation therapy program to improve funct. swallow. Assessment: Pt assessed with NMES on placement 3a 12.0. She had no side effects from NMES. All trials of LE and BOT exercises completed with NMES. COMMUNITY DEVELOPMENT SPECIALIST provided verbal education with safe swallow strategies, safety precautions, and thin liquids. Pt consumed multiple trials of thin liquids without overt s/s of aspiration. - Units Charged Swallowing Therapy: 4
--- NOTE | 2018-07-10 11:13 | RS.DYSPHDC ---
Subjective Date of Discharge: 07/10/18 Date of Evaluation: 06/10/18 Duration of Therapy: 4 weeks Number of sessions: 8 Functional Reporting G Codes: n/a Severity Impairment Rationale: n/a Short Term Goals Problem: Swallowing Goal #1: Pt to improve rotary chew with presented 8/10 trials Goal to be met by: 07/10/18 Progress Towards Goal: Met Problem: Strength and coordination Goal #2: pt to complete 5 trials of 10 reps of LE exercises. Goal to be met by: 07/10/18 Progress Towards Goal: Met Problem: Swallowing Goal #3: Improve pharyngeal squeeze with presnted bolus on 8/10 trials. Goal to be met by: 07/10/18 Progress Towards Goal: Met Problem: Strength and coordination Goal #4: Pt to complete 5 sets of 10 reps of lingual exercises Goal to be met by: 07/10/18 Progress Towards Goal: Met Halfway Goals Problem: Swallowing Goal #1: Consume thin liquids w/o overt s/s of asp during 20 min meal Goal to be met by: 07/10/18 Progress towards goal: Partially Met Comments:: Pt had 1x delayed cough with food texture while consuming thin liquids Problem: Strength and coordination Goal #2: Complete vital stimulation therapy program to improve funct. swallow. Goal to be met by: 07/10/18 Progress towards goal: Met Reason for Discharge Comments: Pt completed recommended sessions with NMES, while receiving education and training with safe swallowing precautions, OME, and aspiration precautions. Reason for Discharge/Current Status:: Pt currently consumes thin liqiuids and has minimal risk for aspiration/penetration. The patient was educated on safe swallowing precautions, aspiration precautions, muscle function, and LE and lingual strength and coordination exercises. She currently can consume a meal independently and use safe swallow techniques including liquid wash, effortful swallow, pacing, and safe swallow precautions.
== END 2018-07-24 23:59 ==
PROVIDERS: ATTEND Family Medicine
DX: G11.8 Other hereditary ataxias (principal); R47.1 Dysarthria and anarthria; R47.89 Other speech disturbances; R47.81 Slurred speech